=== PATIENT | female | born 1995 | race Caucasian/White ===

== ENCOUNTER 2022-06-24 12:43 | Outpatient (CLI) | payer OTHER, SELFPAY ==
--- NOTE | 2022-06-24 13:00 | CRLHL7_ITS ---
For Patients: As a result of the Cures Act, medical imaging exams and procedure reports are released immediately into your electronic medical record. You may view this report before your referring provider. If you have questions, please contact your health care provider. INDICATION: First trimester scan, establish dates. COMPARISON: None. TECHNIQUE: Real-time mary-scale imaging of the pelvis was performed. FINDINGS: Sonographic imaging demonstrates a single living intrauterine gestation. The embryo demonstrates a regular cardiac rate measuring 171 beats per minute. The embryo`s crown-rump length measurement of 3.1 cm corresponds to a gestational age of 10 weeks 0 days with a sonographic due date of 01/20/2023. There is a normal-appearing yolk sac. There are no gross abnormalities noted within the embryo at this early state of development. The gestational sac has a normal appearance. There is no evidence of a perigestational hemorrhage. The amount of fluid within the sac appears appropriate for gestational age. The cervix is closed. The myometrium appears normal. The ovaries are of normal size. There are no suspicious fluid collections noted in the cul-de-sac. IMPRESSION: Normal first trimester OB ultrasound exam. Gestational age calculated at 10 weeks 0 days with a sonographic due date of 01/20/2023. Dictated by Feliciano Burgos MD @ 06/24/2022 1:35:00 PM (Electronically Signed)
== END 2022-06-24 12:44 | disposition home or self-care (01) ==
LOC: US 12:45
PROVIDERS: PCP Physician Assistant Medical; Visit Provider Registered Nurse
DX: Z34.91 Encounter for supervision of normal pregnancy, unspecified, first trimester (principal); Z3A.09 9 weeks gestation of pregnancy; F41.9 Anxiety disorder, unspecified; R53.82 Chronic fatigue, unspecified
CPT/HCPCS: 76817; 86592; 86703; 86762; 86803; 86850; 86900; 86901; 87086; 87340; 87491; 87591

== ENCOUNTER 2022-09-07 13:52 | Outpatient (CLI) | payer OTHER, SELFPAY ==
--- NOTE | 2022-09-07 14:00 | CRLHL7_ITS ---
For Patients: As a result of the Century Cures Act, medical imaging exams and procedure reports are released immediately into your electronic medical record. You may view this report before your referring provider. If you have questions, please contact your health care provider. INDICATION: Evaluate anatomy. COMPARISON: 06/24/2022 TECHNIQUE: Real time mary scale imaging of the fetus was performed as well as color Doppler analysis of the umbilical vessels. FINDINGS: Sonographic imaging demonstrates a single living intrauterine gestation. Fetus demonstrates a regular cardiac rate of 137 beats per minute. Fetus has a vertex position. The placenta lies left anterior without evidence of placenta previa. Several incidental placental lakes noted. The edge of the placenta is located 4.3 cm from the internal cervical os. Amniotic fluid volume appears normal. Single deepest vertical pocket: 6.7 cm. The cervix is closed and measures 4.1 cm in length. The composite ultrasound gestational age is calculated at 20 weeks 6 days with an estimated sonographic due date of 01/19/2023. The estimated weight is 369 grams which lies at the 82nd %. The following biometric measurements were obtained: Biparietal diameter: 4.9 cm/21 weeks 0 days 85th% Head circumference: 18.3 cm/20 weeks 5 days 74th% Abdominal circumference: 16.2 cm/21 weeks 2 days 83rd% Femur length: 3.2 cm/19 weeks 6 days 39th% The HC/AC ratio measures: 1.13 range (1.06-1.25) On anatomic survey, there is a normal appearance of the cerebral ventricles, cavum septi pellucidi, cisterna magna and cerebellum. The nose, lips, and facial profile appear normal. The cervical, thoracic and lumbar spine are well visualized and appear normal. There is a normal four-chamber heart view and the left and right ventricular outflow tracts appear normal. The diaphragm and stomach appear normal. The kidneys and bladder also appear normal. There is a normal three-vessel cord and there is an eccentric cord insertion site located 2.8 cm from the placental edge. The four extremities appear normal. IMPRESSION: Sonographic gestational age 20 weeks 6 days and sonographic due date 01/19/2023. Sonographic age 6 days ahead of the clinical age. Estimated weight 82nd percentile. Abdominal circumference 83rd percentile. No intrinsic abnormalities noted on anatomic survey. Dictated by Feliciano Burgos MD @ 09/09/2022 8:34:09 AM (Electronically Signed)
== END 2022-09-07 13:53 | disposition home or self-care (01) ==
LOC: US 13:53
PROVIDERS: PCP Physician Assistant Medical; Visit Provider Advanced Practice Midwife
DX: Z34.92 Encounter for supervision of normal pregnancy, unspecified, second trimester (principal); Z3A.20 20 weeks gestation of pregnancy
CPT/HCPCS: 76805

== ENCOUNTER 2022-11-02 08:09 | Outpatient (CLI) | payer OTHER, SELFPAY ==
[2022-11-04 01:42] LABS: Rapid Plasma Reagin (RPR) Non Reactive (Non Reactive)
== END 2022-11-02 08:10 | disposition home or self-care (01) ==
PROVIDERS: PCP Physician Assistant Medical; Visit Provider Advanced Practice Midwife
DX: Z34.83 Encounter for supervision of other normal pregnancy, third trimester (principal); Z3A.28 28 weeks gestation of pregnancy
CPT/HCPCS: 81420; 86592

== ENCOUNTER 2022-11-28 17:19 | Outpatient (CLI) | payer OTHER, SELFPAY | END 2022-11-28 17:20 | disposition home or self-care (01) | LOC: LKVREF 17:19 | PROVIDERS: PCP Physician Assistant Medical; Visit Provider Physician Assistant Medical | DX: R23.2 Flushing (principal) | CPT/HCPCS: 84443 ==

== ENCOUNTER 2022-12-01 12:55 | Outpatient (CLI) | payer OTHER, SELFPAY ==
--- NOTE | 2022-12-01 13:00 | CRLHL7_ITS ---
For Patients: As a result of the Century Cures Act, medical imaging exams and procedure reports are released immediately into your electronic medical record. You may view this report before your referring provider. If you have questions, please contact your health care provider. INDICATION: COVID IN 2ND TRIMESTER, GROWTH COMPARISON: 09/07/2022 TECHNIQUE: Real time mary scale imaging of the fetus was performed. FINDINGS: Sonographic imaging demonstrates a single living intrauterine gestation. Fetus demonstrates a regular cardiac rate of 143 beats per minute. Fetus has a vertex position. The placenta lies left anterior. Amniotic fluid volume appears normal and there is a single deepest vertical pocket: 7.0 cm. The estimated weight is 2158gm which lies at the 76th %. On the prior OB ultrasound exam dated 09/07/2022 the estimated weight was at the 82nd%. BPD 92nd percentile. HC 86th percentile. AC 91st percentile. FL 14th percentile. The HC/AC ratio measures 1.04 range (0.95-1.11). IMPRESSION: Sonographic gestational age 33 weeks 4 days and sonographic due date 01/15/2023. Sonographic age 10 days ahead of the clinical age. Estimated weight 76th percentile. Abdominal circumference 91st percentile. Dictated by Feliciano Burgos MD @ 12/01/2022 2:37:36 PM (Electronically Signed)
== END 2022-12-01 12:56 | disposition home or self-care (01) ==
LOC: US 12:55
PROVIDERS: PCP Physician Assistant Medical; Visit Provider Advanced Practice Midwife
DX: O98.513 Other viral diseases complicating pregnancy, third trimester (principal); U07.1 COVID-19; Z3A.33 33 weeks gestation of pregnancy
CPT/HCPCS: 76816

== ENCOUNTER 2022-12-27 15:29 | Outpatient (CLI) | payer OTHER, SELFPAY ==
[2022-12-28 16:05] LABS: Strep B DNA Probe POSITIVE (Negative)
[2022-12-28 19:04] LABS: Strep B Pen/Amox Allergy No
== END 2022-12-27 15:30 | disposition home or self-care (01) ==
LOC: NFLDREF 15:29
PROVIDERS: PCP Physician Assistant Medical; Visit Provider Advanced Practice Midwife
DX: Z34.93 Encounter for supervision of normal pregnancy, unspecified, third trimester (principal); Z3A.35 35 weeks gestation of pregnancy
CPT/HCPCS: 87081; 87653

== ENCOUNTER 2023-01-20 02:37 | Inpatient (IN) | payer OTHER, SELFPAY ==
[2023-01-20] VITALS (54 sets, daily range): BP systolic 87–158; BP diastolic 50–96; PULSE 16–111; RESP 16–20; TEMP 36.4–37.1; O2SAT 87–100; BMI 42.7
[2023-01-20] MEDS: AMPICILLIN 2 GM in 0.9 % SODIUM CHLORIDE Mini-bag 100 ML IVPB (03:00)
--- NOTE | 2023-01-20 03:28 | W.PM.LDBA ---
Subjective History of Present Illness Narrative: Starla is a 27 year old at 39 2/7 weeks gestation being admitted to Labor and Delivery for PROM. She reports having mild contractions last evening before bed. She got up in the night to use the bathroom and while in the kitchen had a large gush of clear fluid at 105 am. Since then she has continued to feel mild contractions about every 8 minutes. Her full history and physical was dictated by MACKENZIE Burger on 01/04/2023. Please see this for details. OB PROBLEM LIST 1. BMI 30.6. Hemoglobin A1c: 5.0% Baby aspirin recommended at [facility]. 2. History of depression anxiety. Doing well without medication. Not seeing a counselor. 3. Persistent nausea. Prescription submitted for Zofran. Mostly resolved 4. Tooth Abscess Penicillin 7 days completed, has apt 09/20/22 with oral surgeon to clean out abscess. 5. Covid positive 09/16/22 s/s on 09/14/22, out of quart. 09/23/22 Declined antibodies 32 week growth us: 78%ile 36 week growth us: declined 6. Asthma Has inhaler, rarely uses 7. GBS positive, needs antibiotics in labor. Ampicillin OB - Problem Based A/P Additional Plan (1) Premature rupture of membranes: Status: Acute (2) 39 weeks gestation of : Status: Acute (3) Group B Streptococcus carrier state affecting : Status: Acute (4) Asthma: Status: Acute Plan ASSESSMENT:? 27 at 39 2/7 weeks gestation? complicated by:?BMI 30.6, History of depression anxiety, Tooth Abscess, Covid, Asthma Labor type: Spontaneous, Early labor? Category 1 FHR pattern.?? Labor complicated by: PROM and GBS +? GBS positive? ? PLAN:? 1. Routine intrapartum cares as ordered. Continue with expectant management. Discussed recommendation of immediate augmentation vs expectant management for max of 12 hours. She would prefer expectant management at this time. 2. Monitoring per policy, Intermittent ? 3. Planning unmedicated . Desires water . The waterbirth suite is in use currently, we will monitor availability and move her into the room if able. She reports understanding. Consent signed. Hep C negative. Candidate for analgesia of choice if desired.?? 4. Patient encouraged to reposition and ambulate to promote physiologic labor and .? 5. GBS prophylaxis initiated for GBS positive status. Will treat with antibiotics per protocol. 6. Anticipate ? Delivery/Labor/Induction Plan Plan: expectant management OB Exam Physical Exam Vital signs: Temp Pulse Resp BP 98.7 F 88 18 133/87 01/20/23 02:44 01/20/23 02:44 01/20/23 02:44 01/20/23 02:44 Narrative: Vitals Reviewed Constitutional:? Alert and oriented x3 HEENT:? Normocephalic, atraumatic Neck:? Supple Lungs:? Clear to auscultation bilaterally Heart:? Regular rate and rhythm, no murmur, rub or gallop Abdomen:? Soft, nontender, and gravid. Vertex by Lm's, confirmed with cervical exam. Extremities:? 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
[2023-01-20 03:34] LABS: SARS PCR* Negative SARS-CoV-2 (Negative)
[2023-01-20] MEDS: AMPICILLIN 1 GM in 0.9 % SODIUM CHLORIDE Mini-bag 100 ML IVPB ×5 (06:46→23:15)
[2023-01-20] MEDS: LACTATED RINGERS 1000 ML 1,000 ML 125 ML IV (11:00)
--- NOTE | 2023-01-20 17:41 | P.OBPN_ITS ---
Documented by User: Deric Muñoz 01/20/23 17:47 Subjective Date Seen: 01/20/23 Narrative: Starla continues to labor with regular contractions, she feels they are stronger than before. She is supported by her partner, has been up moving in the room, doing positioning and walked in the halls. She is leaking meconium stained fluid. Objective Exam: Constitutional: Alert and oriented x3, moderate distress, coping well? Vital signs stable, see nurse documentation?? Abdomen: gravid, contractions palpate strong with contractions and soft between Vital Signs: Last Vital Signs Temp 97.7 F 01/20/23 17:11 Pulse 71 01/20/23 17:11 Resp 17 01/20/23 17:11 BP 126/73 01/20/23 17:11 Pelvic Exam Dilation (cm): 3 Effacement (%): 80 Station: -1 Contractions Monitor mode: Palpation Contraction Frequency: 2-3 Contraction pattern: Regular Contraction intensity: Strong/Firm Assessment Assessment: induction ongoing Station: -1 Amniotic Membrane Status: SROM Status: Category l Heart Rate Baseline: 145 Monitor Accelerations: Present Monitor Decelerations: None Plan Plan: 27 at 39 2/7 weeks gestation? complicated by:?BMI 30.6, History of depression anxiety, Tooth Abscess, Covid, Asthma Labor type: Spontaneous, Early labor? Category 1 FHR pattern.?? Labor complicated by: PROM and GBS +? GBS positive? ? PLAN:? 1. Routine intrapartum cares as ordered. Continue with expectant management. Continue with expectant management as she has made cervical change. 2. Monitoring per policy, Intermittent ? 3. Planning unmedicated . Desires water . The waterbirth suite is available, will move when more uncomfortable with contractions. Consent signed. Hep C negative. Candidate for analgesia of choice if desired.?? 4. Patient encouraged to reposition and ambulate to promote physiologic labor an d .? 5. GBS prophylaxis initiated for GBS positive status. Will treat with antibiotics per protocol. 6. Anticipate ? Documented by User: Minnie Lee CNM 01/20/23 17:51 Plan Plan: 27 at 39 2/7 weeks gestation? complicated by:?BMI 30.6, History of depression anxiety, Tooth Abscess, Covid, Asthma Labor type: Spontaneous, Early labor? Category 1 FHR pattern.?? Labor complicated by: PROM and GBS +? GBS positive? ? PLAN:? 1. Routine intrapartum cares as ordered. Continue with expectant management as she has made cervical change. She declines Pitocin at this time. 2. Monitoring per policy, Intermittent ? 3. Planning unmedicated . Desires water . The waterbirth suite is available, will move when more uncomfortable with contractions. Consent signed. Hep C negative. Candidate for analgesia of choice if desired.?? 4. Patient encouraged to reposition and ambulate to promote physiologic labor and .? 5. GBS prophylaxis initiated for GBS positive status. Will treat with antib iotics per protocol. 6. Anticipate ? YONI Diamond with supervision by Minnie Lee CNM
[2023-01-20] MEDS: ONDANSETRON 2 MG/ML inj 4 MG IV (18:06)
[2023-01-20] MEDS: LACTATED RINGERS 1000 ML 1,000 ML 500 ML IV (22:05)
[2023-01-20] MEDS: LIDOCAINE 2% (PF) 5 ML VIAL EPIDURAL (22:38)
[2023-01-20] MEDS: ROPIVACAINE 0.2% 100 ml 100 ML 12 MG EPIDURAL (22:38)
[2023-01-20] MEDS: fentaNYL 100 MCG/2 ML inj EPIDURAL (22:51)
--- NOTE | 2023-01-20 22:52 | PM.ANBPRC ---
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 Planning to start at urgent care once Urgent Care opens. Marital status:? . Lives with:? .? Pets:? 2 dogs. Denominational/cultural needs:? No. Chemical or radiation exposure:? No. Pre- tobacco use:? No. Pre- alcohol use:? No. Current tobacco use:? No. Current alcohol use:? No. Recreational drug use:? No. Dietary restrictions:? No. Blood transfusion acceptable in an emergency:? Yes. Planning to breastfeed:? Yes. PSYCHOSOCIAL HISTORY: History of depression or currently depressed:? Yes, history of depression. Current physical, emotional, or sexual mistreatment:? No. Problems that will make it hard to make it to appointments:? No. Smoking Status: Never smoker Little interest or pleasure in doing things: several days Feeling down, depressed, or hopeless: not at all Meds Home Medications and Allergies Home Medications Medication Instructions Recorded Confirmed Type albuterol sulfate 90 mcg/actuation 2 puff inhalation PRN PRN 06/24/22 01/20/23 History aerosol inhaler prenat.vits,edward,ysg-ckfo-foxzz 1 tab PO QDAY 06/24/22 01/20/23 History aspirin 81 mg tablet,delayed 81 mg PO QDAY 08/12/22 01/20/23 History release (Adult Low Dose Aspirin) calcium carbonate 200 mg calcium 200 mg PO BID 12/01/22 01/20/23 History (500 mg) chewable tablet (Tums) Allergies Allergy/AdvReac Type Severity Reaction Status Date / Time No Known Allergies Allergy Unknown Verified 01/20/23 08:19 Results Labs Labs: Laboratory Results - last 24 hr 01/20/23 02:45 SARS-CoV-2 (PCR) Negative SARS-CoV-2 Vital Signs Vital Signs: Last Vital Signs Temp 97.7 F 01/20/23 21:00 Pulse 83 01/20/23 22:50 Resp 20 01/20/23 21:00 BP 101/56 L 01/20/23 22:50 Pulse Ox 99 01/20/23 22:50 Weight: 120.157 kg Height: 167.64 cm Anesthesia Procedures Epidural Insertion Patient Location: OB Start Time: 22:00 Stop Time: 23:00 Start Date: 01/20/23 Stop Date: 01/20/23 Reason for Block: procedure for pain Patient Position: sitting Performed By: Kaye Loving Preanesthetic Checklist: IV checked, risks and benefits discussed, monitors and equipment checked, pre-op evaluation, timeout performed and anesthesia consent Prep: chlorhexidine gluconate Monitoring: blood pressure monitoring, continuous pulse oximetry and heart rate Approach: midline Vertebral Space: lumbar (1-5) Epidural Technique: KAYKAY saline Needle Type: Tuohy needle Injection Technique: continuous catheter (continuous catheter) Needle gauge: 17 Needle Length (cm): 10 cm Needle Insertion Depth (cm): 7 Catheter Gauge: 19 Catheter Type: multi-orifice Catheter at skin depth (cm): 15 Test Dose Result: negative and lidocaine 1.5% with epinephrine 1 to 200,000
[2023-01-20] MEDS: PHENYLEPHRINE 100 MCG/ML SYRINGE IVP ×2 (22:53→23:52)
[2023-01-21] VITALS (59 sets, daily range): BP systolic 92–153; BP diastolic 48–87; PULSE 47–136; RESP 16–20; TEMP 36.4–37.1; O2SAT 98–105
[2023-01-21] MEDS: OXYTOCIN 30 unit/500 ML in NS 30 UNIT/500 ML BAG IVPB (00:14)
--- NOTE | 2023-01-21 00:51 | P.OBPN_ITS ---
Subjective Time Seen by Provider: 00:00 Date Seen: 01/21/23 Narrative: Starla labored in the tub for a while. She was experiencing lost of back pain. She was checked and found to be 6cm which was only a slight change from 5cm earlier. She choose at that time to get out of the tub and to get an epidural. She is now comfortable and resting with her epidural in place. Contractions have spaced out so after a discussion with the patient it was decided to start IV Pitocin augmentation. Pitocin was started at 0055. Objective Vital Signs: Last Vital Signs Temp 97.7 F 01/20/23 21:00 Pulse 96 01/21/23 00:35 Resp 20 01/20/23 21:00 BP 99/51 L 01/21/23 00:35 Pulse Ox 99 01/20/23 23:20 Pelvic Exam Dilation (cm): 6 Effacement (%): 90 Station: 0 Contractions Monitor mode: Palpation Contraction Frequency: 3-5 Contraction pattern: Regular Contraction intensity: Strong/Firm Assessment Assessment: active labor Station: -1 Amniotic Membrane Status: SROM Status: Category l Heart Rate Baseline: 130 Skilled Nursing Variability: Moderate (6-25) Monitor Accelerations: Present Monitor Decelerations: None Plan Plan: Anticipate . Resting comfortably with an epidural. Reposition to encourage descent and optimal positioning. GBS positive. Continue antibiotic administration.
[2023-01-21] MEDS: LACTATED RINGERS 1000 ML 1,000 ML 125 ML IV (01:00)
[2023-01-21] MEDS: AMPICILLIN 1 GM in 0.9 % SODIUM CHLORIDE Mini-bag 100 ML IVPB (03:15)
[2023-01-21] MEDS: PHENYLEPHRINE 100 MCG/ML SYRINGE IVP (04:21)
[2023-01-21] MEDS: ONDANSETRON 2 MG/ML inj 4 MG IV (04:36)
[2023-01-21] MEDS: METHYLERGONOVINE MALEATE 0.2 MG/ML INJ IM ×2 (07:20→08:35)
[2023-01-21] MEDS: fentaNYL 100 MCG/2 ML inj EPIDURAL (07:33)
[2023-01-21 07:50] LABS: Basophils Percent Auto 0.1 % (0.0-3.0); Hematocrit 36.2 % (33.0-51.0); Hemoglobin* 12.4 gm/dL (12.0-16.0); Immature Granulocytes Pct Auto 1.7 %; Lymphocytes Percent Auto 11.5 % (20-44); Mean Corpuscular HGB Conc 34 gm/dL (32-36); Mean Corpuscular Hemoglobin 33 pg (26-34); Mean Corpuscular Volume 96 fL (80-100); Monocytes Percent Auto 6.6 % (0.0-11.0); Neutrophils Percent Auto 80.1 % (42.0-72.0); Platelet Count* 178 K/uL (140-440); RDW Coefficient of Variation % 12.4 % (11.5-15.5); Red Blood Count 3.76 m/uL (4.00-5.20); White Blood Count* 14.47 K/uL (4.50-11.00)
[2023-01-21 07:53] LABS: Slide Review Reflex No
[2023-01-21] MEDS: OXYTOCIN 30 unit/500 ML in NS 30 UNIT/500 ML BAG 500 UNIT IVPB (07:55)
[2023-01-21] MEDS: LIDOCAINE 1 % PF 30 ML INJECTION (08:03)
[2023-01-21 08:27] LABS: INR 0.96 (0.91-1.10); Prothrombin Time 13.4 Seconds
[2023-01-21 08:28] LABS: Fibrinogen* 540 mg/dL (200-450); Partial Thromboplastin Time* 27 Seconds (23-33)
--- NOTE | 2023-01-21 08:38 | W.PM.VAGDE_ITS ---
OB Procedure Vag Delivery Mother Details Mother Details: The patient is a 27 year-old, 1, Para 0, admitted on 01/20/23 at Days gestation. : 1 Para: 1 Weeks Gestation: 39.3 Admission Date: 01/20/23 Additional Details Amniotic Membrane Status: SROM Amniotic Membrane Rupture Date: 01/21/23 Amniotic Membrane Rupture Time: 01:05 Amniotic Membrane Fluid Description: Meconium Stained Analgesia/Anesthesia Type: Epidural Waterbirth: No Pitcoin: Yes Intrapartal Events: Excessive Bleeding and ROM >18 Hours Delivery augmentation: pitocin Labor Onset: 13:45 Complete: 04:48 Pushin:59 Heart: heart tones during second stage were category 2 with a baseline of 120- 130, moderate variability, +accels, and occasional variable decelerations. Delivery Details Delivery Date: 01/21/23 Delivery Time: 06:59 Route of delivery: Infant Gender: Male Infant Viability: Alive; Heart Rate Present Position at Delivery: OA Delivery Details: Delivered over intact perineum via spontaneous vaginal delivery. was placed on maternal abdomen.? Cord was clamped and cut after a 1 minute delay. Nose and mouth were bulb suctioned.? Infant weight 8lbs 0ounces. After delivery of the baby, light cord traction was placed on the umbilical cord. It felt firmly attached but multiple gushes of blood were noted. At this time it was noted that there was around 800ml of blood in the drape. A quick evaluation for lacerations was performed and none were found. IV pitocin was already running and rectal cytotec and IM methergine were ordered and given. Dr. Huber was called in from home for evaluation. The placenta was still not releasing and there continued to be heavy bleeding. Leslie Martinez CNM was in the building so she was called to the bedside as well. TXA was ordered and given. A manual removal of the placenta was then preformed. The bleeding continued after the placenta was removed. Hemabate was considered but the patient did have a history of asthma so this was not administered. Many large clots were removed for the uterus after the placenta was removed and she continued to bleed. A couple of potential placental tissue were removed. Leslie Martinez CNM also performed a uterine sweep and evaluation and another potential piece of membrane was removed. Massive transfusion protocol was called when the QBL was noted to be close to 2000mL. The surgical team had already been called in. Again lacerations were evaluated for and none were found. It was attempted to place a Bakri but it was abandoned after 2 unsuccessful attempts. After again removing clots, internal and external pressure was placed to attempt to tamponade the lower uterine segment. This pressure was held as the patient was wheeled to the OR in preparation for the OBs arrival. This seemed to help as when we arrived in the OR the bleeding seemed to have slowed and only small clots were removed for the uterus. The patient was moved over to the OR table and the OB arrived shortly after and assumed care after report was given. 1 Minute Interval Total Score: 8 5 Minute Interval Total Score: 9 Additional Details Shoulder Dystocia: No Placenta Delivery Time: 07:40 Placental Delivery Description: Manual Removal Delivery repair: other (repaired in OR by MD provider. see her note for details.) Procedure Done: Global Blood Loss: 2,720 Laceration: Perineal - 2nd Degree Episiotomy Description: None Blood Loss Measurement Type: QBL Bakri Used: No (attempted but unsuccessful) Cord Vessel Description: 3 Vessels, Nuchal Cord (nuchal x2 ) and Delivered through Event Summary Status: Mother and infant were stable after delivery. Disposition: floor (after surgery and recovery.)
--- NOTE | 2023-01-21 09:30 | P.ANES_ITS ---
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
[2023-01-21 09:33] LABS: Basophils Percent Auto 0.1 % (0.0-3.0); Hematocrit 29.4 % (33.0-51.0); Immature Granulocytes Pct Auto 0.5 %; Lymphocytes Percent Auto 5.9 % (20-44); Mean Corpuscular HGB Conc 34 gm/dL (32-36); Mean Corpuscular Hemoglobin 33 pg (26-34); Mean Corpuscular Volume 97 fL (80-100); Monocytes Percent Auto 7.6 % (0.0-11.0); Neutrophils Percent Auto 85.9 % (42.0-72.0); Platelet Count* 169 K/uL (140-440); RDW Coefficient of Variation % 12.7 % (11.5-15.5); Red Blood Count 3.03 m/uL (4.00-5.20); White Blood Count* 21.42 K/uL (4.50-11.00)
[2023-01-21 09:42] LABS: Slide Review Reflex No
[2023-01-21 09:49] LABS: INR 1.01 (0.91-1.10); Prothrombin Time 13.9 Seconds
[2023-01-21 09:50] LABS: Fibrinogen* 447 mg/dL (200-450); Partial Thromboplastin Time* 27 Seconds (23-33)
[2023-01-21] MEDS: AMPICILLIN/SULBACTAM 3 GM in 0.9 % SODIUM CHLORIDE Mini-bag 100 ML IVPB (10:19)
--- NOTE | 2023-01-21 10:23 | W.PM.GYNPROC ---
Procedure Note Date Seen: 01/21/23 Procedure Details: PREOPERATIVE DIAGNOSIS: 1. S/P normal spontaneous vaginal delivery. 2. Retained placenta. 3. hemorrhage, QBL 2000 mL. 4. Second degree perineal laceration. POSTOPERATIVE DIAGNOSIS: 1. S/P normal spontaneous vaginal delivery. 2. Retained placenta. 3. hemorrhage, QBL 2000 mL. 4. Second degree perineal laceration. PROCEDURE: 1. Exam under anesthesia. 2. Repair of second degree perineal laceration. 3. Uterine curettage under ultrasound guidance. 4. Attempted placement of Bakri balloon. SURGEON: Mayo. ANESTHESIA: Epidrual, MAC, local COMPLICATIONS: None. ESTIMATED BLOOD LOSS: 75 mL for the procedure. Total EBL 2720 mL following delivery. FINDINGS: Small amount of retained placental tissue anteriorly near the lower uterine segment. Second-degree midline perineal laceration. PROCEDURE NOTE: I found the patient in the operating room in the supine position. The massive transfusion protocol had been initiated. Verbal consent was obtained for the above surgical procedures. The patient was prepared and draped in the normal, sterile fashion in the dorsal lithotomy position. An examination was performed under anesthesia with the findings noted above. The second-degree midline perineal laceration was repaired in the normal, layered, sterile fashion using a 3-0 chromic suture. An open-sided, bivalve speculum was introduced into the vagina and the cervix visualized. The anterior lip of the cervix was grasped with an Allis clamp for traction. A large uterine curette was inserted through the cervical os into the uterine cavity under ultrasound guidance. There was a small amount of hyperechoic tissue seen at the anterior lower uterine segment by ultrasound. Four sweeps were made with the curette and a small amount of placental - appearing tissue was obtained each time. With the last gentle curettage, as the tissue was removed, there was of brisk flow from the uterus. This resolved with bimanual massage and additional uterotonic agents, including IV Pitocin, 0.2 mg IM Methergine, and an additional 1000 mg tranexamic acid. Also under ultrasound guidance, I attempted multiple times to place a Bakri balloon, but each time, the balloon could not be advanced into the uterine cavity because it curled and came back out before it could be advanced into the lower uterine segment. The patient's labs were resulted during the operative procedure, and she was hemodynamically stable during the procedure in labs were normal, therefore the decision was made not to administer 2 units of O-negative blood as initially ordered before the patient was taken to the operating room. I also decided to abandon the attempt to place a Bakri balloon, as it was unsuccessful and the bleeding resolved. The patient tolerated the procedure well. Sponge, lap, needle, and instrument counts were reported as correct x2. The patient was taken to the recovery room awake and in stable condition. She did receive 3 g IV Unasyn at the start of the procedure.
[2023-01-21] MEDS: ACETAMINOPHEN 500 MG TABLET 1000 MG PO (16:07)
[2023-01-21 16:43] LABS: Basophils Percent Auto 0.3 % (0.0-3.0); Hematocrit 25.7 % (33.0-51.0); Hemoglobin* 8.8 gm/dL (12.0-16.0); Immature Granulocytes Pct Auto 1.4 %; Lymphocytes Percent Auto 11.5 % (20-44); Mean Corpuscular HGB Conc 34 gm/dL (32-36); Mean Corpuscular Hemoglobin 33 pg (26-34); Mean Corpuscular Volume 97 fL (80-100); Neutrophils Percent Auto 79.8 % (42.0-72.0); Platelet Count* 158 K/uL (140-440); RDW Coefficient of Variation % 12.8 % (11.5-15.5); Red Blood Count 2.65 m/uL (4.00-5.20); White Blood Count* 14.83 K/uL (4.50-11.00)
[2023-01-21 16:45] LABS: Slide Review Reflex No
[2023-01-21 16:57] LABS: INR 1.02 (0.91-1.10)
[2023-01-21 16:58] LABS: Fibrinogen* 444 mg/dL (200-450); Partial Thromboplastin Time* 30 Seconds (23-33)
[2023-01-21] MEDS: LACTATED RINGERS 1000 ML 1,000 ML 500 ML IV (17:35)
--- NOTE | 2023-01-21 19:39 | PC.NURSE ---
at 1755 Michelle MANN called RN to state that Mayo LAZARO ordered to go ahead and give 1-2 units of PRBC and to draw labs per protocol.
--- NOTE | 2023-01-21 19:41 | PC.NURSE ---
RN updated Michelle DYERM at 1719 that pts Hgb dropped from 10 (at 0926) and that was now 8.8. RN states that pt states that she feels more weak and that pt was only able to stand at the bedside for around 30 seconds and then became dizzy and nauseous. RN states that pts completion is still not great too. RN states that she has a little color in her lips but not much. RN asks CNM thoughts on giving blood or something else. CNM asks if the pt has had much fluid or eaten and how her VS are. RN states that pt has been drinking a lot and that she has had over 3L emptied from her catheter. RN states that pt just ate [employer] about an hour ago. RN state that BP is where has been all afternoon for RN and that it was just 118/81 but that HR was elevated. RN states that at the 1340 assessment HR was 104 and that it was 126 just now. RN states that O2 was good as well as temp. RN states that pt. has had minimal bleeding and is firm. CNM states that she does not want to transfuse at Hgb of 8.8. CNM orders for a fluid bolus of 500cc. CNM would like repeat Hgb in 3-4 hours. CNM states that if pt feels worse or VS get worse that HGB can be checked sooner. CNM orders for VS to be checked more frequent like 1-2 hours to make sure that they are stable. CNM states that if something seems off or if RN feels that plan needs to change she can message CNM to re-evaluate plan of care.
--- NOTE | 2023-01-21 20:08 | PC.NURSE ---
at 1746 RN updated Michelle MANN that when RN went in and explained the plan of care with the pt. the pt. seemed disappointed that she was not getting blood. RN states that pt was expressing concern that she was feeling that it would compromise her ability to heal since she cannot be mobile and that she still needs her gaspar. RN states that she just wanted to make CNM aware and see if CNM would like to change plan of care. CNM states that she can talk with Mayo LAZARO to see what she would like. Rn states to CNM to keep RN posted on the plan of care.
[2023-01-21] MEDS: IBUPROFEN 600 MG TABLET PO (22:22)
--- NOTE | 2023-01-21 23:40 | PC.NURSE ---
TAR vitals edit: vitals that were entered at 2109 and 2154 were entered incorrectly. Please disregard.
[2023-01-22] VITALS (11 sets, daily range): BP systolic 96–135; BP diastolic 63–87; PULSE 78–96; RESP 16–20; TEMP 36.4–37.4; O2SAT 97–99
[2023-01-22] MEDS: ACETAMINOPHEN 500 MG TABLET 1000 MG PO ×2 (03:34→19:46)
[2023-01-22 04:31] LABS: Hemoglobin* 9.4 gm/dL (12.0-16.0)
--- NOTE | 2023-01-22 10:14 | PM.OBPNVD1 ---
OB - PN:Subj Subjective Time Seen by Provider: 10:15 Date Seen: 01/22/23 Patient comments OB post-: pain well controlled, tolerating diet and flatus present status: and doing well [place] feeding status: exclusively (has supplemented with expressed breastmilk) Narrative: Complications:?Starla still has a Sommers catheter in place. She has difficulty with ambulation due to intense fatigue and dizziness. She was only able to sit in a chair for about 20 min before having to get back into bed. She states that she feels better than yesterday but is still very fatigued. Her labs and VS are stable but due to her symptoms another unit of blood will be ordered and infused. PO iron supplementation was also ordered. Her pain is well controlled with current medications. Urinary output is adequate and has a Sommers catheter in place. Will plan to remove later today after her blood transfusion and she is feeling better.? Has a good appetite, is tolerating a general diet, is passing flatus, and has not had a bowel movement.? Has small amount of rubra lochia.? ? OB - PN: Obj Exam Physical Exam: Vital signs: Temp Pulse Resp BP Pulse Ox O2 Del Method 97.6 F 89 20 117/87 98 Room Air 01/22/23 03:36 01/22/23 03:36 01/22/23 03:36 01/22/23 03:36 01/22/23 03:36 01/22/23 03:36 Narrative: GENERAL APPEARANCE:? pale complexion with a normal affect, alert, no distress? MOOD:? appropriate? CHEST:? clear to auscultation and percussion? HEART:? regular rate and rhythm? ABDOMEN:? soft, non-tender the uterine fundus is U/2 and is appropriate for the stage of recovery.? PERINEUM:? mild edema of the perineum, there is a 2nd degree that is healing well.? EXTREMITIES:? normal and no edema? ? Urinary Catheter Management: 2-way Urethral: Cath placed during this visit: yes Urethral indwelling: Yes Reason for continuing: surgical procedure Insertion date: 01/21/23 Insertion time: 07:53 OB - PN: Obj Data Labs Labs: Laboratory Results - last 24 hr 01/21/23 01/21/23 01/22/23 07:30 16:38 03:40 WBC 14.83 H RBC 2.65 L Hgb 8.8 L 9.4 L Hct 25.7 L MCV 97 MCH 33 MCHC 34 RDW Coeff of Kathy 12.8 Plt Count 158 Neut % (Auto) 79.8 H Lymph % (Auto) 11.5 L [place] % (Auto) 7.0 Eos % (Auto) 0.0 Baso % (Auto) 0.3 Neut # (Auto) 11.80 H Lymph # (Auto) 1.70 [place] # (Auto) 1.00 H Eos # (Auto) 0.00 Baso # (Auto) 0.00 INR 1.02 APTT 30 Fibrinogen 444 Blood Type O Positive Antibody Screen NEGATIVE Crossmatch (AHG) See Detail OB - PN: A/P Vaginal Delivery Assessment and Plan (1) Group B Streptococcus carrier state affecting : Status: Acute (2) Asthma: Status: Acute (3) care and examination immediately after delivery: Status: Acute (4) Lactating mother: Status: Acute (5) Anemia: Status: Acute (6) hemorrhage: Status: Acute Plan 27 year old on day 1.? 1. cares.? 2. Transfuse 1 unit PRBCs. 3. Anticipate discharge tomorrow. Plan day: 1 Plan: routine care
[2023-01-22] MEDS: IBUPROFEN 600 MG TABLET PO (12:35)
[2023-01-22] MEDS: DOCUSATE SODIUM 100 MG CAPSULE PO (12:36)
[2023-01-22] MEDS: FERROUS SULFATE 325 MG TABLET PO (12:36)
[2023-01-22 17:59] LABS: Hemoglobin* 9.9 gm/dL (12.0-16.0)
[2023-01-23 00:22] VITALS: BP 118/76; PULSE 79; RESP 20; TEMP 36.5; O2SAT 99
[2023-01-23 03:36] VITALS: BP 111/73; PULSE 83; RESP 20; TEMP 36.5; O2SAT 99
[2023-01-23 06:30] VITALS: BP 132/78; PULSE 82; RESP 20; TEMP 36.4; O2SAT 99
[2023-01-23] MEDS: LACTATED RINGERS 1000 ML 1,000 ML IV (06:46)
[2023-01-23] MEDS: ONDANSETRON 2 MG/ML inj 4 MG IV (06:53)
[2023-01-23 06:57] LABS: Basophils Absolute Auto 0.04 K/uL (0.00-0.30); Basophils Percent Auto 0.4 % (0.0-3.0); Eosinophils Absolute Auto 0.15 K/uL (0.00-0.50); Eosinophils Percent Auto 1.5 % (0.0-7.0); Hematocrit 28.3 % (33.0-51.0); Hemoglobin* 9.6 gm/dL (12.0-16.0); Immature Granulocytes Abs Auto 0.41 K/uL (0.00-0.30); Immature Granulocytes Pct Auto 4.1 %; Lymphocytes Absolute Auto 2.09 K/uL (0.90-2.90); Lymphocytes Percent Auto 20.9 % (20-44); Mean Corpuscular HGB Conc 34 gm/dL (32-36); Mean Corpuscular Hemoglobin 32 pg (26-34); Mean Corpuscular Volume 94 fL (80-100); Monocytes Percent Auto 6.3 % (0.0-11.0); Neutrophils Absolute Auto 6.66 K/uL (1.7-7.0); Neutrophils Percent Auto 66.8 % (42.0-72.0); Platelet Count* 147 K/uL (140-440); RDW Coefficient of Variation % 14.9 % (11.5-15.5); Red Blood Count 3.02 m/uL (4.00-5.20); White Blood Count* 9.98 K/uL (4.50-11.00)
--- NOTE | 2023-01-23 07:04 | PC.NURSE ---
At 630, pt stated she was feeling nauseous dizzy and light-headed. RN noted that PT appeared pale. RN contacted Mimi Paige CNM, who instructed RN to order CBC and start a bolus on patient.
[2023-01-23 07:19] LABS: Slide Review Reflex No
[2023-01-23 07:40] VITALS: BP 132/80; PULSE 85; RESP 16; TEMP 36.8; O2SAT 100
--- NOTE | 2023-01-23 08:39 | P.DS_ITS ---
DS: Providers Provider Time Seen by Provider: 08:30 Date Seen: 01/23/23 Date of admission: 01/20/23 02:37 Primary care physician: Kaye Phillips PA-C Admitting Clinician: Minnie Lee CNM Attending Physician on discharge: Minine Lee CNM Date of Discharge: 01/23/23 DS: Diagnosis Discharge Diagnosis (1) NVD (normal vaginal delivery): Status: Acute (2) hemorrhage: Status: Acute (3) Anemia: Status: Acute (4) Lactating mother: Status: Acute (5) Blood transfusion during current hospitalisation: Status: Acute (6) S/P dilation and curettage: Status: Acute Exam Narrative: Exam Narrative: VSS, afebrile GENERAL APPEARANCE: ?normal affect, alert, no distress MOOD: ?appropriate HEENT: normocephalic, neck supple, full ROM CHEST: ?Symmetrical chest wall movement. ?Normal respiratory effort. ?Clear to auscultation HEART: ?regular rate and rhythm ABDOMEN: ?soft, non-tender. Uterine fundus is firm, 2 below Umbilicus, Midline and is appropriate for the stage of recovery. ?Bowel sounds present. PERINEUM: ?mild edema of the perineum, there is a 2nd degree laceration that is healing well. EXTREMITIES: ?normal and +2 edema Const: Vital Signs, click to edit/add: Vital Signs - 24 hr 01/22/23 09:55 01/22/23 11:27 01/22/23 11:31 Temperature 98.0 F 98.0 F Pulse Rate 95 95 Pulse Rate [Blood Pressure Cuff] 96 Respiratory Rate 16 16 16 Blood Pressure 106/72 106/72 Blood Pressure [Ri ght Arm] 114/74 Pulse Oximetry 97 98 98 Oxygen Delivery Me thod Room Air 01/22/23 11:47 01/22/23 12:32 01/22/23 13:32 Temperature 97.7 F 98.6 F 98.2 F Pulse Rate 78 79 88 Pulse Rate [Blood Pressure Cuff] Respiratory Rate 18 16 16 Blood Pressure 117/83 135/79 96/66 Blood Pressure [Ri ght Arm] Pulse Oximetry 98 98 97 Oxygen Delivery Me thod 01/22/23 14:08 01/22/23 17:00 01/22/23 20:09 Temperature 98.4 F 97.9 F 98.3 F Pulse Rate 91 Pulse Rate [Blood Pressure Cuff] 85 82 Respiratory Rate 16 16 20 Blood Pressure 99/63 Blood Pressure [Ri ght Arm] 112/72 114/72 Pulse Oximetry 97 99 99 Oxygen Delivery Me thod Room Air Room Air 01/23/23 00:22 01/23/23 03:36 01/23/23 06:30 Temperature 97.7 F 97.7 F 97.6 F Pulse Rate Pulse Rate [Blood Pressure Cuff] 79 83 82 Respiratory Rate 20 20 20 Blood Pressure Blood Pressure [Ri ght Arm] 118/76 111/73 132/78 Pulse Oximetry 99 99 99 Oxygen Delivery Me thod Room Air Room Air Room Air 01/23/23 07:40 Temperature 98.3 F Pulse Rate Pulse Rate [Blood Pressure Cuff] 85 Respiratory Rate 16 Blood Pressure Blood Pressure [Ri ght Arm] 132/80 Pulse Oximetry 100 Oxygen Delivery Me thod Room Air Documenting provider has reviewed patient's vital signs: yes OB - DS: Summary Hospital Course Hospital Course: Starla is a 27 y.o. G 1 P 1 who was admitted to [facility] for ROM. ?She had an NVD complicated by a PP hemorrhage that required a D & C for some retained placenta. The patient feels well. ?The pain is well controlled with current medications. ?She has no new complaints. ?She is breast feeding and reports things are going well.? the patient has done ok. Improvement noted after transfusion of 3 units of blood. ? Vitals have been stable.? She has remained afebrile.? Has a good appetite, is tolerating a general diet. ?She is voiding without difficulty.? She is passing gas and has had a bowel movement.? She is ambulating, does occ have some mild dizziness.? Has Small amount of rubra lochia. CNM test lead application testing this morning was notified she had some nausea, chills and dizziness after getting back into bed after void. CBC repeated at at that time and fluid bolus give. Spoke with pt after consulting OB. Vitals remain stable. WBC is WNL. Hgb is low, but not low enough to necessitate a transfusion. After speaking with pt, she agrees she just was worried and did not want to miss something. Reviewed may have chills/night sweats from . Aware of what to look out for as signs of an infection. Encouraged to stay hydrated, eat protein rich foods, and rest. Problems: PP hemorrhage D & C for retained placenta fragments plan: Discharge home with baby. Follow up in 2 weeks and 6 weeks. , may follow up with if needed Acute anemia, continue iron supplementation for 6 weeks Reviewed signs of infection, knows to call if they occur. Peripartum Data delivery method: Vaginal Laceration description: Perineal - 2nd Degree Procedures: Procedures Operation Date: 01/21/23 07:55 Actual Procedure Side Surgeon p Exam under anesthesia, Repair second degree perineal laceration, uterine curettage, attempted bakri placement under ultrasound guidance Sissy Huber MD complications: transfusion, uterine atony and retained placenta Infant Gender: Male Status at Discharge Functional status at discharge: independent ambulation Overall status at discharge: patient is progressing back to baseline Time Spent with Patient Time attestation: Total time spent providing and/or coordinating discharge services: Time spent: Less than 30 minutes Discharge Plan Discharge Disposition: Home, Self-Care Date of Admission: 01/20/23 02:37 Attending Provider on Discharge: Heidy Martinez Primary Care Provider: Kaye Phillips Condition: Stable Anticipated Discharge Date/Time: 01/23/23 11:00 Discharge Medications: New ibuprofen 600 mg Tablet 600 mg PO Q6H PRNQty: 60 0RF Continued prenat.vits,edward,[id number] Tablet 1 tab PO QDAY albuterol sulfate 90 mcg/actuation HFA aerosol inhaler 2 puff inhalation PRN PRN calcium carbonate [Tums] 200 mg calcium (500 mg) tablet,chewable 200 mg PO BID Discontinued aspirin [Adult Low Dose Aspirin] 81 mg tablet,delayed release (DR/EC) 81 mg PO QDAY Discharge Orders: Discharge Order (Routine); Ordered 01/23/23 Ordered By: Heidy Martinez Patient Education: OB Over the Counter Medication Information, OB Vaginal/Breast Feeding Additional Instructions: Follow up in 2 weeks and 6 weeks Activity Level: Activity as Tolerated Discharge Diet: Regular Follow Up Appointments: Kaye Phillips PA-C [Primary Care Provider] - Forms: Splother Info Instructions
[2023-01-23] MEDS: FERROUS SULFATE 325 MG TABLET PO (08:56)
[2023-01-23] MEDS: DOCUSATE SODIUM 100 MG CAPSULE PO (08:57)
== END 2023-01-23 12:55 | disposition home or self-care (01) | DRG 797 ==
LOC: OB OUT 02:38 → OB 02:38
PROVIDERS: Advanced Practice Midwife; Obstetrics & Gynecology; Admitting Provider Advanced Practice Midwife; PCP Physician Assistant Medical; Visit Provider Advanced Practice Midwife
PROC: 10D17ZZ Extraction of Products of Conception, Retained, Via Natural or Artificial Opening (ICD-10-PCS; principal; 2023-01-21 07:45)
DX: O77.0 Labor and delivery complicated by meconium in amniotic fluid (principal); D62 Acute posthemorrhagic anemia; Z37.0 Single live birth; O72.0 Third-stage hemorrhage; O90.81 Anemia of the puerperium; O99.824 Streptococcus B carrier state complicating childbirth; O70.1 Second degree perineal laceration during delivery; R53.83 Other fatigue; R42 Dizziness and giddiness; J45.909 Unspecified asthma, uncomplicated; Z3A.39 39 weeks gestation of pregnancy
CPT/HCPCS: 00940; 01967; 36415; 36430; 76998; 85018; 85025; 85384; 85610; 85730; 86850; 86900; 86901; 86922; 87635; 88307; 99140; A9270; J0290; J0295; J2001; J2210; J2370; J2405; J2704; J2795; J3010; J7120; P9016